=== PATIENT | female | born 1980 | race Asian ===

== ENCOUNTER 2016-09-09 01:05 | Inpatient (IN) | payer SELFPAY ==
[~2016-09-09] VITALS: Ht 162.6 cm; Wt 68.9 kg
[2016-09-09] MEDS ORDERED: LACTATED RINGERS 1,000 ML IV SCH (01:26)
[2016-09-09] MEDS ORDERED: CITRIC ACID/SODIUM CITRATE 30 ML UDC PO ONE (01:30)
[2016-09-09 02:14] LABS: BASOPHILS # (AUTO) 0.1 K/uL (0.00-0.22); BASOPHILS % (AUTO) 0.8 % (0.0-2.0); EOSINOPHILS # (AUTO) 0.2 K/uL (0-0.4); EOSINOPHILS % (AUTO) 2.1 % (0.0-4.0); HEMATOCRIT 33.8 % (36-48); HEMOGLOBIN 11.2 g/dL (12.0-16.0); LYMPHOCYTES # (AUTO) 1.9 K/uL (2.5-16.5); LYMPHOCYTES % (AUTO) 22.6 % (20.5-51.1); MEAN CORPUSCULAR HEMOGLOBIN 30 pg (27-31); MEAN CORPUSCULAR HGB CONC 33 g/dL (33-37); MEAN CORPUSCULAR VOLUME 92 fL (80-94); MONOCYTES # (AUTO) 0.7 K/uL (0.8-1.0); MONOCYTES % (AUTO) 8.6 % (1.7-9.3); NEUTROPHILS # (AUTO) 5.7 K/uL (1.8-7.7); NEUTROPHILS % (AUTO) 65.9 % (42.2-75.2); PLATELET COUNT (AUTO) 199 K/uL (140-450); RED CELL DISTRIBUTION WIDTH 12.9 % (11.6-13.7); WHITE BLOOD COUNT (AUTO) 8.6 K/uL (4.8-10.8)
[2016-09-09 02:30] VITALS: BP 117/75
[2016-09-09 02:58] LABS: APPEARANCE,URINE CLEAR (CLEAR); BILIRUBIN,URINE NEGATIVE (NEGATIVE); BLOOD, URINE 3+ (NEGATIVE); COLOR,URINE YELLOW (YELLOW); LEUKOCYTE ESTERASE ,URINE NEGATIVE (NEGATIVE); NITRITE, URINE NEGATIVE (NEGATIVE); PH,URINE 5.5 (5.0-9.0); PROTEIN,URINE NEGATIVE (NEGATIVE); UGLUCOSE NEGATIVE (NEGATIVE); UROBILINOGEN,URINE 0.2 EU/dL (0.2 - 1)
[2016-09-09 03:20] LABS: BACTERIA,URINE None Seen /HPF (None Seen); RBC,URINE 0-5 (RARE) /HPF (0-5); SQUAMOUS EPITHELIAL CELL,UR None Seen /LPF (0-3 (FEW)); WBC,URINE 0-5 (RARE) /HPF (0-5)
[2016-09-09] MEDS ORDERED: IRON65TA3 PO (03:29)
[2016-09-09] MEDS ORDERED: AMPICILLIN 2,000 MG in NACL 0.9% 100 ML IV ONE (04:15)
[2016-09-09] MEDS ORDERED: TERBUTALINE 1 MG/ML VIAL SUBQ ONE (04:25)
[2016-09-09] MEDS ORDERED: AMPICILLIN 2,000 MG VIAL ONE (05:13)
[2016-09-09] MEDS: TERBUTALINE 1 MG/ML VIAL SUBQ SCH ×2 (05:21→05:22)
[2016-09-09] MEDS ORDERED: TRIAMCINOLONE 40 MG/ML 5ML VIAL ONE (06:01)
[2016-09-09] MEDS ORDERED: OXYTOCIN 10 UNITS/ML VIAL ONE (06:01)
[2016-09-09] MEDS ORDERED: ceFAZolin 1,000 MG VIAL ONE (06:12)
[2016-09-09] MEDS ORDERED: CITRIC ACID/SODIUM CITRATE 30 ML UDC ONE (06:12)
[2016-09-09] MEDS ORDERED: MORPHINE SULFATE 10 MG/ML SYR ONE (06:13)
[2016-09-09] MEDS ORDERED: fentaNYL 0.05 MG/ML VIAL ONE (06:13)
[2016-09-09] MEDS ORDERED: MORPHINE PRES FREE 10 MG/10 ML AMP IV ONE (06:14)
[2016-09-09] MEDS ORDERED: ONDANSETRON 4 MG/2 ML VIAL IVP PRN ×2 (06:35)
[2016-09-09] MEDS ORDERED: NALOXONE 0.4 MG/ML VIAL IVP PRN ×3 (06:35)
[2016-09-09] MEDS ORDERED: diphenhydrAMINE 50 MG/ML VIAL IVP PRN (06:35)
[2016-09-09] MEDS ORDERED: NALBUPHINE 10 MG/ML AMP IVP PRN (06:35)
[2016-09-09] MEDS ORDERED: KETOROLAC 60 MG/2 ML VIAL IM PRN (06:35)
--- NOTE | 2016-09-09 08:38 | NUR ---
PATIENT HAS BEEN SCREENED AND CATEGORIZED LOW NUTRITION RISK. PATIENT WILL BE SEEN WITHIN 7 DAYS OF ADMISSION. 09/15/[address]
[2016-09-09] MEDS ORDERED: OXYTOCIN 20 UNITS/LR PREMIX 1,000 ML IV ONE (12:08)
[2016-09-09] MEDS ORDERED: TEMAZEPAM 15 MG CAP PO PRN (12:10)
[2016-09-09] MEDS ORDERED: IBUPROFEN 800 MG TAB PO PRN (12:10)
[2016-09-09] MEDS ORDERED: MEASLES, MUMPS, AND RUBELLA 1 VIAL SQVAC PRN (12:10)
[2016-09-09] MEDS ORDERED: METHYLERGONOVINE 0.2 MG/ML AMP IM PRN (12:10)
[2016-09-09] MEDS ORDERED: SIMETHICONE 80 MG TAB.CHEW PO PRN (12:10)
[2016-09-09] MEDS ORDERED: oxyCODONE/APAP 5/325 MG 1 TAB TAB PO PRN (12:10)
[2016-09-09] MEDS ORDERED: HYDROcodone/APAP 5/325 MG 1 TAB TAB PO PRN (12:10)
[2016-09-09 12:33] LABS: BASOPHILS % (AUTO) 0.4 % (0.0-2.0); EOSINOPHILS # (AUTO) 0.2 K/uL (0-0.4); EOSINOPHILS % (AUTO) 2.1 % (0.0-4.0); HEMATOCRIT 28.8 % (36-48); HEMOGLOBIN 9.4 g/dL (12.0-16.0); LYMPHOCYTES # (AUTO) 1.3 K/uL (2.5-16.5); LYMPHOCYTES % (AUTO) 10.6 % (20.5-51.1); MEAN CORPUSCULAR HEMOGLOBIN 30 pg (27-31); MEAN CORPUSCULAR HGB CONC 33 g/dL (33-37); MEAN CORPUSCULAR VOLUME 91 fL (80-94); MONOCYTES # (AUTO) 0.7 K/uL (0.8-1.0); MONOCYTES % (AUTO) 6.3 % (1.7-9.3); NEUTROPHILS # (AUTO) 9.6 K/uL (1.8-7.7); NEUTROPHILS % (AUTO) 80.6 % (42.2-75.2); PLATELET COUNT (AUTO) 187 K/uL (140-450); RED BLOOD CELL COUNT(AUTO) 3.16 MIL/uL (4.20-5.40); RED CELL DISTRIBUTION WIDTH 13.1 % (11.6-13.7); WHITE BLOOD COUNT (AUTO) 11.8 K/uL (4.8-10.8)
[2016-09-09] MEDS: OXYTOCIN 20 UNITS/LR PREMIX 1,000 ML IV SCH ×2 (12:55→20:20)
[2016-09-10] MEDS: OXYTOCIN 20 UNITS/LR PREMIX 1,000 ML IV SCH (03:55)
[2016-09-10] MEDS ORDERED: SODIUM PHOSPHATE 118 ML ENEM RC SCH (09:00)
[2016-09-10 17:49] LABS: HEMATOCRIT 29.3 % (36-48); HEMOGLOBIN 9.6 g/dL (12.0-16.0); MEAN CORPUSCULAR HEMOGLOBIN 30 pg (27-31); MEAN CORPUSCULAR HGB CONC 33 g/dL (33-37); MEAN CORPUSCULAR VOLUME 91 fL (80-94); PLATELET COUNT (AUTO) 236 K/uL (140-450); RED BLOOD CELL COUNT(AUTO) 3.21 MIL/uL (4.20-5.40); RED CELL DISTRIBUTION WIDTH 12.8 % (11.6-13.7); WHITE BLOOD COUNT (AUTO) 12.2 K/uL (4.8-10.8)
[2016-09-10 18:23] LABS: NEUTROPHILS % (MANUAL) 86 (43-65)
[2016-09-10 18:24] LABS: BAND % (MANUAL) 3 % (0-8); EOSINOPHILS % (MANUAL) 1 % (0-4); LYMPHOCYTES % (MANUAL) 8 % (20-46); MONOCYTES % (MANUAL) 2 % (5-12); PLATELET ESTIMATE ADEQUATE
[2016-09-10] MEDS: DOCUSATE SOD/SENNA 50/8.6 MG 1 TAB PO SCH (20:50)
[2016-09-11] MEDS: DOCUSATE SOD/SENNA 50/8.6 MG 1 TAB PO SCH (21:30)
== END 2016-09-12 12:10 | disposition home or self-care (01) | DRG 766 ==
LOC: MFCC 01:05
PROVIDERS: ADMIT Obstetrics & Gynecology; ATTEND Obstetrics & Gynecology
PROC: 10D00Z1 Extraction of Products of Conception, Low, Open Approach (ICD-10-PCS; principal; 2016-09-09 06:00)
PROC: 3E0234Z Introduction of Serum, Toxoid and Vaccine into Muscle, Percutaneous Approach (ICD-10-PCS; 2016-09-10)
DX: O32.1XX0 Maternal care for breech presentation, not applicable or unspecified (principal); Z3A.39 39 weeks gestation of pregnancy; Z37.0 Single live birth; Z23 Encounter for immunization
CPT/HCPCS: 36415; 81001; 85025; 86592; 86886; 86900; 86901; 90715; J0290; J0690; J2270; J2590; J3010; J3105; J3301; J7060; J7120